=== PATIENT | female | born 1945 | race Caucasian/White ===

== ENCOUNTER 2017-03-07 15:38 | Emergency (ER) | payer OTHER, BC ==
[~2017-03-07] VITALS: Ht 167.6 cm; Wt 78.0 kg
[~2017-03-07 15:38] MED LIST: ACETAZOLAMIDE 250 MG; ASCORBIC ACID500 M3 PO; ASPIRIN EC325 MG PO; CALTRATE 6001 TABLE1 PO; CELECOXIB200 MG PO; DAILY MULTIPLE1 EACH PO; DIAMOX250 MG PO; FIORICET,ESG1 TABLET PO; HYDROCODON-ACE1 EAC7 PO; IRON325 M1 PO; NEXIUM40 MG PO; VENLAFAXINE HCL75 M3; VENLAFAXINE HCL75 M3 PO; VERAPAMIL HCL180 MG; VERAPAMIL HCL180 MG PO; VITAMIN E400 UNIT PO
[2017-03-07 18:06] LABS: MCH 31.5 PG (29.0-34.0); MCHC 33.6 G/DL (30.0-36.0); MCV 93.8 FL (83-99); MEAN PLAT.VOLUME 9.5 uM^3 (9.5-12.4); PLATELET COUNT 229 K/uL (156-360); RBC DIS.WIDTH-CV 12.6 % (11.8-14.6); RBC DIS.WIDTH-SD 43.8 % (39-53); RED BLOOD COUNT 4.48 M/uL (3.80-5.20); WHITE BLOOD COUNT 7.5 K/uL (4.1-10.2)
[2017-03-07 18:08] LABS: INTER. NORMALIZED RATIO 1.1; PROTHROMBIN TIME 12.1 SEC (10.2-12.9)
[2017-03-07 18:09] LABS: CHLORIDE 113 mEq/L (99-109); POTASSIUM 3.8 mEq/L (3.7-5.4); SODIUM 142 mEq/L (136-147)
[2017-03-07 18:11] LABS: GLUCOSE 88 mg/dL (70-99)
[2017-03-07 18:13] LABS: ANION GAP 9 MEQ/L (2-14); TOTAL BILIRUBIN 0.3 mg/dL (0.0-1.0)
[2017-03-07 18:15] LABS: ALKALINE PHOSPHATASE 70 IU/L (3-129); GFR ESTIMATE (CALCULATED) > 59 mL/min/
[2017-03-07 18:16] LABS: UREA NITROGEN (BUN) 14 mg/dL (9-23)
[2017-03-07] MEDS ORDERED: COUMADIN5 MG PO (19:07)
[2017-03-07 19:49] VITALS: BP 151/88
== END 2017-03-07 19:50 | disposition home or self-care (01) ==
LOC: EME 15:38
PROVIDERS: Nurse Practitioner Family
DX: I82.4Y1 Acute embolism and thrombosis of unspecified deep veins of right proximal lower extremity (principal); I10 Essential (primary) hypertension; K21.9 Gastro-esophageal reflux disease without esophagitis
CPT/HCPCS: 80053; 85027; 85610; 85730; 99281; 99283